=== PATIENT | male | born 1950 | race Caucasian/White ===

== ENCOUNTER 2018-02-19 06:50 | Day surgery (SDC) | payer MEDICARE, BC ==
[~2018-02-19 06:50] MED LIST: Lactated Ringers 1,000 ML IV SCH; Lidocaine 1%/Sod Bicarbonate in NS 8.4% 1 ML Syringe IDERM PRN; Sodium Chloride 0.9% 10 ML Syringe FLUSH PRN
[2018-02-19] MEDS ORDERED: Propofol 200 MG/20 ML SDV ONE ×2 (07:09→10:33)
[2018-02-19] MEDS ORDERED: Midazolam 1 MG/ML 2 ML SDV ONE (07:09)
--- NOTE | 2018-02-19 07:27 | PCM.PREANE ---
Preanesthetic Assessment - Anesthesia/Transfusion/Family Hx Anesthesia History: Prior Anesthesia Without Reaction Family History of Anesthesia Reaction: No Transfusion History: No Prior Transfusion(s) - Review of Systems General: Other (S/p cold, a little running nose, CKD 3 with Creatine 1.65, awaiting labs, ) Pulmonary: Other (TAY with CPAP, SOB) Cardiovascular: Other (CHF, amyloidosis, heart murmur, cardiomyopathy, low K+) Gastrointestinal: Other (GERD) Other: Reports: Diabetes, Depression - Physical Assessment NPO Status Date: 02/18/18 NPO Status Time: 21:00 Pulse: 52 O2 Sat by Pulse Oximetry: 95 Respiratory Rate: 16 Blood Pressure: 112/63 Temperature: 36.6 C Weight: 92.986 kg ASA Class: 3 Mental Status: Alert & Oriented x3 Airway Class: Mallampati = 2 Dentition: Reports: Normal Dentition Thyro-Mental Finger Breadths: 3 Mouth Opening Finger Breadths: 3 ROM/Head Extension: Full Lungs: Clear to Auscultation, Normal Respiratory Effort Cardiovascular: Regular Rate, Regular Rhythm, Murmurs - Allergies Allergies/Adverse Reactions: Allergies Allergy/AdvReac Type Severity Reaction Status Date / Time ioversol Allergy Rash Verified 02/16/18 11:24 levofloxacin Allergy Other Verified 02/07/16 13:43 Wspkcvg-Bre-Dpt Reductase Allergy Joint Pain Verified 02/16/18 11:24 Inhibitor - Blood Blood Available: No Product(s) Available: None - Anesthesia Plan Pre-Op Medication Ordered: None Beta Fox: Metoprolol Med Last Dose Date: 02/19/18 Med Last Dose Time: 06:00 - Acknowledgements Anesthesia Type Planned: MAC Pt an Appropriate Candidate for the Planned Anesthesia: Yes Alternatives and Risks of Anesthesia Discussed w Pt/Guardian: Yes Pt/Guardian Understands and Agrees with Anesthesia Plan: Yes PreAnesthesia Questionnaire HEENT History: Reports: Sinusitis Cardiovascular History: Reports: Cardiomyopathy, Heart Failure, Heart Murmur, Other (See Below) Other Cardiovascular History: amyloidosis Respiratory History: Reports: Bronchitis, Recurrent, Sleep Apnea Gastrointestinal History: Reports: GERD Genitourinary History: Reports: Chronic Renal Insuffiency Musculoskeletal History: Reports: Gout Neurological History: Reports: Other (See Below) Other Neuro History: narcolepsy Psychiatric History: Reports: Depression Endocrine/Metabolic History: Reports: Diabetes, Type II Hematologic History: Reports: Other (See Below) Other Hematologic History: amyloidosis, harvesting of peripheral blood stem cells Dermatologic History: Reports: Urticaria - Past Surgical History Cardiovascular Surgical History: Reports: Other (See Below) Other Cardiovascular Surgeries/Procedures: cardiac catheterization Respiratory Surgical History: Reports: Thoracentesis GI Surgical History: Reports: EGD Male Surgical History: Reports: Vasectomy - SUBSTANCE USE Smoking Status *Q: Never Smoker Recreational Drug Use History: No - HOME MEDS Home Medications: Home Meds Albuterol Sulfate 3 mg INH Q6H PRN 02/07/16 [History] Allopurinol [Zyloprim] 100 mg PO BID 02/07/16 [History] Colchicine [Colcrys] 0.6 mg PO BID PRN 02/07/16 [History] Glimepiride [Amaryl] 1 mg PO DAILY 02/07/16 [History] Hydrocortisone [Anusol-HC] 1 mg TOP BID 02/07/16 [History] Metolazone [Zaroxolyn] 2.5 mg PO Q7D 02/07/16 [History] Metoprolol Tartrate 50 mg PO BID 02/07/16 [History] Potassium Chloride 20 meq PO TID 02/07/16 [History] Torsemide 40 mg PO BID 02/07/16 [History] Cholecalciferol (Vitamin D3) [Vitamin D3] 1 cap PO ASDIRECTED 02/16/18 [History] Citalopram [Citalopram HBr] 20 mg PO DAILY 02/16/18 [History] Echinacea 1 cap PO DAILY 02/16/18 [History] guaiFENesin [Mucinex] 600 mg PO ASDIRECTED 02/16/18 [History] - CURRENT (IN HOUSE) MEDS Current Meds: Current Medications Lactated Ringer's (Ringers, Lactated) 1,000 mls @ 125 mls/hr IV ASDIRECTED CHAPO Stop: 02/19/18 23:00 Sodium Chloride (Normal Saline) 1,000 mls @ 125 mls/hr IV ASDIRECTED CHAPO Lidocaine/Sodium Bicarbonate (Buffered Lidocaine 1% In Ns 8.4%) 0.25 ml IDERM ONETIME PRN PRN Reason: Prior to IV Start Stop: 02/19/18 18:00 Sodium Chloride (Saline Flush) 10 ml FLUSH ASDIRECTED PRN PRN Reason: Keep Vein Open Stop: 02/19/18 18:00 Discontinued Medications Midazolam HCl (Versed 1 Mg/Ml) Confirm Administered Dose 2 mg .ROUTE .STK-MED ONE Stop: 02/19/18 07:10 Propofol (Diprivan 20 Ml) Confirm Administered Dose 200 mg .ROUTE .STK-MED ONE Stop: 02/19/18 07:10
[2018-02-19] MEDS ORDERED: Sodium Chloride 0.9% 1,000 ML IV SCH (07:30)
[2018-02-19] MEDS: Potassium Chloride 10 MEQ in Premix Bag 1 BAG IV SCH ×4 (08:00→11:26)
[2018-02-19] MEDS ORDERED: Lidocaine 1% 6 ML ONE (08:17)
[2018-02-19] MEDS ORDERED: Lidocaine 1% 4 ML ONE (10:16)
--- NOTE | 2018-02-19 10:49 | PCM.OPNOTE ---
- General Post-Op/Procedure Note Date of Surgery/Procedure: 02/19/18 Operative Procedure(s): colonoscopy to cecum Pre Op Diagnosis: screening colonoscopy Post-Op Diagnosis: Same Anesthesia Technique: MAC Primary Surgeon: Berhane oSto EBL in mLs: 0 Complications: None Condition: Good
--- NOTE | 2018-02-19 10:55 | PCM48HPAN ---
Post Anesthesia Note - EVALUATION WITHIN 48HRS OF ANESTHETIC Vital Signs in Normal Range: Yes Patient Participated in Evaluation: Yes Respiratory Function Stable: Yes Airway Patent: Yes Cardiovascular Function Stable: Yes Hydration Status Stable: Yes Pain Control Satisfactory: Yes Nausea and Vomiting Control Satisfactory: Yes Mental Status Recovered: Yes Pulse Rate: 57 SaO2: 90 Resp Rate: 16 Temperature: 36.5 C Blood Pressure: 101/64
[2018-02-19] MEDS ORDERED: Lidocaine 1% 2 ML ONE ×2 (11:23)
[2018-02-19 12:09] VITALS: BP 95/53
--- NOTE | 2018-02-20 07:12 | OR ---
DATE OF OPERATION: 02/19/2018 SURGEON: Berhane Soto MD PREOPERATIVE DIAGNOSIS: Screening colonoscopy. POSTOPERATIVE DIAGNOSIS: Screening colonoscopy. OPERATION PERFORMED: Colonoscopy to the cecum. FINDINGS: Occasional sigmoid diverticulosis. There was no angiodysplasias, neoplasias, large tumor masses, or ulcerations noted. ANESTHESIA: IV sedation. DESCRIPTION OF PROCEDURE: The patient was taken to the operating room, placed in a supine position connected to monitoring equipment, given IV sedation. He was placed in the left lateral position. Perianal area was inspected and was normal. Rectal exam showed good sphincter tone. A video Olympus colonoscope was then introduced into the rectum and threaded up without problem to the cecum, where the appendicular orifice and ileocecal valve was noted. Prep was excellent. [place] cleansing score grade A throughout the colon and the scope was slowly withdrawn showing the cecum, ascending colon, transverse colon, descending colon, sigmoid colon, and rectum. The above noted was found. The patient tolerated the procedure, sent to recovery room in a stable condition to be followed up as needed in the clinic. RECOMMENDATIONS: Repeat colonoscopy in 10 years. ESTIMATED BLOOD LOSS: MMODAL /[id number]
== END 2018-02-19 13:15 | disposition home or self-care (01) ==
LOC: JD.SDS 06:50
PROVIDERS: ATTEND Surgery
DX: Z12.11 Encounter for screening for malignant neoplasm of colon (principal); K57.30 Diverticulosis of large intestine without perforation or abscess without bleeding; F32.9 Major depressive disorder, single episode, unspecified; M10.9 Gout, unspecified; I25.2 Old myocardial infarction; G47.419 Narcolepsy without cataplexy; E11.22 Type 2 diabetes mellitus with diabetic chronic kidney disease; N18.4 Chronic kidney disease, stage 4 (severe); Z98.890 Other specified postprocedural states; Z79.84 Long term (current) use of oral hypoglycemic drugs; Z79.899 Other long term (current) drug therapy
CPT/HCPCS: 36415; 80048; 84132; G0121; J2001; J2250; J3480; J7040; 00811; J2704

== ENCOUNTER 2018-12-16 19:52 | Emergency (ER) | payer MEDICARE, BC ==
[2018-12-16 20:05] VITALS: BP 135/76
[2018-12-16] MEDS ORDERED: Lidocaine 1% 50 ML MDV ONE (20:24)
--- NOTE | 2018-12-16 20:54 | EDM.PDOC ---
ED HPI GENERAL MEDICAL PROBLEM - General Chief Complaint: Laceration Stated Complaint: RIGHT WRIST CUT WITH CLINICAL MARKETING MANAGER BLADE Time Seen by Provider: 12/16/18 20:03 Source of Information: Reports: Patient, RN Notes Reviewed History Limitations: Reports: No Limitations - History of Present Illness INITIAL COMMENTS - FREE TEXT/NARRATIVE: Patient is a 68 year old male who presents to the ED for the evaluation of a right wrist laceration. 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 This is around 2 cm in length and is linear. He is able to move all of his fingers and has sensation to all fingers. The bleeding is under control at time of initial evaluation. He states that he is Right handed and is not up to date with his tetanus booster. The laceration is located on his right medial wrist. - Related Data Allergies Allergy/AdvReac Type Severity Reaction Status Date / Time ioversol Allergy Rash Verified 12/16/18 20:02 levofloxacin Allergy Other Verified 12/16/18 20:02 Bzqidwp-Byh-Cqp Reductase AdvReac Joint Pain Verified 12/16/18 20:02 Inhibitor Home Meds: Home Meds Albuterol Sulfate 3 mg INH Q6H PRN 02/07/16 [History] Allopurinol [Zyloprim] 100 mg PO BID 02/07/16 [History] Colchicine [Colcrys] 0.6 mg PO BID PRN 02/07/16 [History] Glimepiride [Amaryl] 1 mg PO DAILY 02/07/16 [History] Hydrocortisone [Anusol-HC] 1 mg TOP BID 02/07/16 [History] Metolazone [Zaroxolyn] 2.5 mg PO Q7D 02/07/16 [History] Metoprolol Tartrate 50 mg PO BID 02/07/16 [History] Potassium Chloride 20 meq PO TID 02/07/16 [History] Torsemide 40 mg PO BID 02/07/16 [History] Cholecalciferol (Vitamin D3) [Vitamin D3] 1 cap PO ASDIRECTED 02/16/18 [History] Citalopram [Citalopram HBr] 20 mg PO DAILY 02/16/18 [History] Echinacea 1 cap PO DAILY 02/16/18 [History] guaiFENesin [Mucinex] 600 mg PO ASDIRECTED 02/16/18 [History] Past Medical History HEENT History: Reports: Impaired Vision, Sinusitis Other HEENT History: Wears glasses Cardiovascular History: Reports: Cardiomyopathy, Heart Failure, Heart Murmur, Other (See Below) Other Cardiovascular History: amyloidosis Respiratory History: Reports: Bronchitis, Recurrent, Sleep Apnea Gastrointestinal History: Reports: GERD Genitourinary History: Reports: Chronic Renal Insuffiency Musculoskeletal History: Reports: Gout Neurological History: Reports: Other (See Below) Other Neuro History: narcolepsy Psychiatric History: Reports: Depression Endocrine/Metabolic History: Reports: Diabetes, Type II Hematologic History: Reports: Other (See Below) Other Hematologic History: amyloidosis, harvesting of peripheral blood stem cells Dermatologic History: Reports: Urticaria - Past Surgical History Cardiovascular Surgical History: Reports: Other (See Below) Other Cardiovascular Surgeries/Procedures: cardiac catheterization Respiratory Surgical History: Reports: Thoracentesis GI Surgical History: Reports: Colonoscopy, EGD Male Surgical History: Reports: Vasectomy Social & Family History - Tobacco Use Smoking Status *Q: Never Smoker - Caffeine Use Caffeine Use: Reports: Coffee, Soda - Recreational Drug Use Recreational Drug Use: No ED ROS GENERAL - Review of Systems Review Of Systems: ROS reveals no pertinent complaints other than HPI. Constitutional: Reports: No Symptoms HEENT: Reports: No Symptoms Respiratory: Reports: No Symptoms Cardiovascular: Reports: No Symptoms Endocrine: Reports: No Symptoms GI/Abdominal: Reports: No Symptoms : Reports: No Symptoms Musculoskeletal: Reports: No Symptoms Skin: Reports: Wound (SEE HPI) Neurological: Reports: No Symptoms Psychiatric: Reports: No Symptoms Hematologic/Lymphatic: Reports: No Symptoms Immunologic: Reports: No Symptoms ED EXAM, SKIN/RASH Exam: See Below Text/Narrative:: exam limited to right upper extremity Exam Limited By: No Limitations General Appearance: Alert, WD/WN, No Apparent Distress Eye Exam: Bilateral Eye: Normal Inspection Head: Atraumatic, Normocephalic Neck: Normal Inspection Respiratory/Chest: No Respiratory Distress, Lungs Clear, Normal Breath Sounds, No Accessory Muscle Use, Chest Non-Tender Cardiovascular: Normal Peripheral Pulses, Regular Rate, Rhythm, No Murmur Extremities: Normal Inspection, Normal Range of Motion, Non-Tender, Normal Capillary Refill Neurological: Alert, Oriented, Normal Cognition, No Motor/Sensory Deficits Psychiatric: Normal Affect, Normal Mood Skin: Warm, Dry, Intact, Normal Color, No Rash ED SKIN PROCEDURES - Laceration/Wound Repair Right Medial Wrist Lac/Wound length In cm: 2 Appearance: Superficial, Subcutaneous, Linear, Clean Distal NVT: Neuro & Vascular Intact, No Tendon Injury Anesthetic Type: Local Local Anesthesia - Lidocaine (Xylocaine): 1% Plain Local Anesthetic Volume: 5cc Skin Prep: Chlorhexidine (Hibiciens), Isopropyl Alcohol (Alcohol) Saline Irrigation (cc's): 250 (copious) Exploration/Debridement/Repair: Wound Explored, In a Bloodless Field, Explored to Base, No Foreign Material Found Closed with: Sutures Suture Size: 4-0 # of Sutures: 5 Suture Type: Prolene, Interrupted, Simple Sterile Dressing Applied: Nurse Tetanus Status Addressed: Yes Complications: No Course - Vital Signs Last Recorded V/S: Last Vital Signs Temp 97.5 F 12/16/18 20:02 Pulse 60 12/16/18 20:02 Resp 18 12/16/18 20:02 BP 135/76 12/16/18 20:02 Pulse Ox 95 12/16/18 20:02 - Orders/Labs/Meds Meds: Medications Discontinued Medications Generic Name Dose Route Start Last Admin Trade Name Harlanq PRN Reason Stop Dose Admin Lidocaine HCl Confirm 12/16/18 20:24 Xylocaine 1% Administered 12/16/18 20:25 Dose 50 ml .ROUTE .STK-MED ONE Departure - Departure Time of Disposition: 20:51 Disposition: Home, Self-Care 01 Condition: Fair Clinical Impression: Laceration of wrist Qualifiers: Encounter type: initial encounter Laterality: right Qualified Code(s): S61.511A - Laceration without foreign body of right wrist, initial encounter - Discharge Information *PRESCRIPTION DRUG MONITORING PROGRAM REVIEWED*: No *COPY OF PRESCRIPTION DRUG MONITORING REPORT IN PATIENT ALEE: No Instructions: Stitches, [place], or Adhesive Wound Closure, [id number] Forms: ED Department Discharge Additional Instructions: You have been evaluated in the ED for your laceration. Sutures will need to stay in for 7 days (12-23-18) or 12-24-18 You may return to the ED or clinic for removal. Recommend no heavy lifting or strenuous activity for 2-3 days while the laceration is in early healing stages. Please keep this area clean and dry, you may cleanse with regular soap and water. No vigorous scrubbing. Please return to ED if your symptoms change or worsen.
[2018-12-16] MEDS ORDERED: Diphtheria,Pertussis(Acell),Tetanus Vaccine 0.5 ML Syringe ONE (20:57)
[2018-12-16] MEDS ORDERED: Lidocaine 1% 50 ML MDV INJECT STA (21:07)
== END 2018-12-16 21:04 | disposition home or self-care (01) ==
LOC: JD.ED 19:52
DX: S61.511A Laceration without foreign body of right wrist, initial encounter (principal); Z23 Encounter for immunization; E11.22 Type 2 diabetes mellitus with diabetic chronic kidney disease; N18.9 Chronic kidney disease, unspecified; I50.9 Heart failure, unspecified; K21.9 Gastro-esophageal reflux disease without esophagitis; Z88.8 Allergy status to other drugs, medicaments and biological substances; Z88.1 Allergy status to other antibiotic agents; W26.8XXA Contact with other sharp object(s), not elsewhere classified, initial encounter
CPT/HCPCS: 12001; 90471; 90700; 99282; J2001

== ENCOUNTER 2021-02-06 10:10 | Emergency (ER) | payer MEDICARE, BC ==
[2021-02-06] MEDS ORDERED: Sodium Chloride 0.9% 10 ML Syringe FLUSH PRN (10:32)
[2021-02-06] MEDS ORDERED: HYDROmorphone 1 MG/ML Syringe IVPUSH ONE (10:49)
[2021-02-06] MEDS ORDERED: Ondansetron 4 MG/2 ML SDV IVPUSH ONE (10:56)
--- NOTE | 2021-02-06 10:56 | EDM.PDOC ---
ED HPI GENERAL MEDICAL PROBLEM - General Chief Complaint: Lower Extremity Injury/Pain Stated Complaint: SORE RIGHT LEG Time Seen by Provider: 02/06/21 10:13 Source of Information: Reports: Patient History Limitations: Reports: No Limitations - History of Present Illness INITIAL COMMENTS - FREE TEXT/NARRATIVE: The patient presents with pain, swelling and ecchymosis to the right hamstring area. He said 2 weeks ago he was running some bases with his grandson and felt some pain. On Monday he had to lift a washer down some steps. He felt pain in his back and right posterior, upper leg. he could not get out of bed due to pain. He now has more swelling and ecchymosis. He is on coumadin due to atrial fibrillation. He also has a history of cardiomyopathy and a myloidosis. He has no chest pain or shortness of breath. He has no abdominal pain, nausea or vomiting. Onset: Gradual Duration: Day(s): Location: Reports: Lower Extremity, Right (posterior, upper leg) Quality: Reports: Sharp Severity: Severe Improves with: Reports: Immobilization Worsens with: Reports: Movement Context: Reports: Trauma (running and lifting) Associated Symptoms: Reports: No Other Symptoms Right Leg Pain Score (Numeric/FACES): 6 - Related Data Allergies Allergy/AdvReac Type Severity Reaction Status Date / Time nitroglycerin Allergy Severe Other Verified 02/06/21 10:22 ioversol Allergy Rash Verified 02/06/21 10:22 levofloxacin Allergy Other Verified 02/06/21 10:22 Lcqvftf-Nwu-Uhs Reductase AdvReac Joint Pain Verified 02/06/21 10:22 Inhibitor Home Meds: Home Meds Albuterol Sulfate 3 mg INH Q6H PRN 02/07/16 [History] Allopurinol [Zyloprim] 200 mg PO DAILY 02/07/16 [History] Colchicine [Colcrys] 0.6 mg PO DAILY PRN 02/07/16 [History] Glimepiride [Amaryl] 1 mg PO DAILY 02/07/16 [History] Potassium Chloride 40 meq PO BID 02/07/16 [History] Torsemide 40 mg PO BID 02/07/16 [History] Citalopram [Citalopram HBr] 20 mg PO DAILY 02/16/18 [History] Blood Sugar Diagnostic [Embrace] 1 each MC DAILY 02/06/21 [History] Eplerenone [Inspra] 25 mg PO DAILY 02/06/21 [History] Hydrocodone/Acetaminophen [Hydrocodone-Acetamin 5-325 mg] 1 - 2 each PO Q6HR PRN #20 tablet 02/06/21 [Rx] Warfarin Sodium [Jantoven] 5 mg PO DAILY 02/06/21 [History] Past Medical History HEENT History: Reports: Impaired Vision, Sinusitis Other HEENT History: Wears glasses Cardiovascular History: Reports: Afib, Cardiomyopathy, Heart Failure, Heart Murmur, SOB on Exertion, Other (See Below) Other Cardiovascular History: amyloidosis Respiratory History: Reports: Bronchitis, Recurrent, Sleep Apnea Gastrointestinal History: Reports: GERD Genitourinary History: Reports: Chronic Renal Insuffiency Musculoskeletal History: Reports: Arthritis, Back Pain, Chronic, Gout, Neck Pain, Chronic Neurological History: Reports: Other (See Below) Other Neuro History: narcolepsy Psychiatric History: Reports: Depression Endocrine/Metabolic History: Reports: Diabetes, Type II, Obesity/BMI 30+ Hematologic History: Reports: Other (See Below) Other Hematologic History: amyloidosis, harvesting of peripheral blood stem cells Dermatologic History: Reports: Urticaria - Infectious Disease History Infectious Disease History: Reports: Chicken Pox, Measles, Mumps, Shingles - Past Surgical History Cardiovascular Surgical History: Reports: Other (See Below) Other Cardiovascular Surgeries/Procedures: cardiac catheterization Respiratory Surgical History: Reports: Thoracentesis GI Surgical History: Reports: Colonoscopy, EGD Male Surgical History: Reports: Vasectomy Social & Family History - Tobacco Use Tobacco Use Status *Q: Never Tobacco User Second Hand Smoke Exposure: No - Caffeine Use Caffeine Use: Reports: Soda - Recreational Drug Use Recreational Drug Use: No Review of Systems - Review of Systems Review Of Systems: See Below Constitutional: Reports: No Symptoms Eyes: Reports: No Symptoms Ears: Reports: No Symptoms Nose: Reports: No Symptoms Mouth/Throat: Reports: No Symptoms Respiratory: Reports: No Symptoms Cardiovascular: Reports: No Symptoms GI/Abdominal: Reports: No Symptoms Genitourinary: Reports: No Symptoms Musculoskeletal: Reports: Other (Right posterior upper leg has edema and ecchymosis) ED EXAM, GENERAL - Physical Exam Exam: See Below Exam Limited By: No Limitations General Appearance: Alert, No Apparent Distress Ears: Normal External Exam Nose: Normal Inspection Head: Atraumatic, Normocephalic Neck: Normal Inspection Respiratory/Chest: No Respiratory Distress, Lungs Clear, Normal Breath Sounds Cardiovascular: Regular Rate, Rhythm, No Edema, No Murmur GI/Abdominal: Soft, Non-Tender, No Organomegaly, No Mass Extremities: Other (Right upper popsterior leg has moderate edema, ecchymosis and pain upon palpation. Good sensation and pulses distally.) Course - Vital Signs Last Recorded V/S: Last Vital Signs Temp 97.6 F 02/06/21 10:13 Pulse 76 02/06/21 12:30 Resp 12 02/06/21 12:30 BP 120/74 02/06/21 12:30 Pulse Ox 98 02/06/21 12:30 - Orders/Labs/Meds Orders: Active Orders 24 hr Category Date Time Status Cardiac Monitoring [RC] . DIRECTED Care 02/06/21 10:32 Active Peripheral IV Care [RC] . DIRECTED Care 02/06/21 10:33 Active Femur Min 2V Rt [CR] Stat Exams 02/06/21 10:33 Taken VL Duplex Lwr Ext Veins Ltd Rt [US] Stat Exams 02/06/21 10:34 Taken Sodium Chloride 0.9% [Saline Flush] Med 02/06/21 10:32 Active 10 ml FLUSH ASDIRECTED PRN Durable Medical Equipment for Discharge [DME for Oth 02/06/21 12:57 Ordered Discharge] [COMM] Stat Peripheral IV Insertion Adult [OM.PC] Stat Oth 02/06/21 10:32 Ordered Medication Orders Sodium Chloride (Sodium Chloride 0.9% 10 Ml Syringe) 10 ml FLUSH ASDIRECTED PRN PRN Reason: Keep Vein Open Last Admin: 02/06/21 10:43 Dose: 10 ml Documented by: CHIQUI Labs: Laboratory Tests 02/06/21 02/06/21 02/06/21 Range/Units 10:38 10:38 10:38 WBC 12.40 H (4.23-9.07) K/mm3 RBC 4.66 (4.63-6.08) M/mm3 Hgb 13.3 L D (13.7-17.5) gm/dl Hct 40.8 (40.1-51.0) % MCV 87.6 D (79.0-92.2) fl MCH 28.5 (25.7-32.2) pg MCHC 32.6 (32.2-35.5) g/dl RDW Std Deviation 48.6 H (35.1-43.9) fL Plt Count 234 (163-337) K/mm3 MPV 10.3 (9.4-12.3) fl Neut % (Auto) 80.3 H (34.0-67.9) % Lymph % (Auto) 9.5 L (21.8-53.1) % [place] % (Auto) 9.2 (5.3-12.2) % Eos % (Auto) 0.6 L (0.8-7.0) Baso % (Auto) 0.2 (0.1-1.2) % Neut # (Auto) 9.96 H (1.78-5.38) K/mm3 Lymph # (Auto) 1.18 L (1.32-3.57) K/mm3 [place] # (Auto) 1.14 H (0.30-0.82) K/mm3 Eos # (Auto) 0.08 (0.04-0.54) K/mm3 Baso # (Auto) 0.02 (0.01-0.08) K/mm3 Manual Slide Review Abnormal smear PT 32.9 H (9.7-12.0) SECONDS INR 3.14 Sodium 141 (136-145) mEq/L Potassium 3.9 (3.5-5.1) mEq/L Chloride 103 (98-107) mEq/L Carbon Dioxide 27 (21-32) mEq/L Anion Gap 14.9 (5-15) BUN 23 H (7-18) mg/dL Creatinine 1.6 H (0.7-1.3) mg/dL Est Cr Clr Drug Dosing 44.19 mL/min Estimated GFR (MDRD) 43 (>60) mL/min BUN/Creatinine Ratio 14.4 (14-18) Glucose 110 (80-115) mg/dL Calcium 8.5 (8.5-10.1) mg/dL Total Bilirubin 1.1 H (0.2-1.0) mg/dL AST 38 H (15-37) U/L ALT 29 (16-63) U/L Alkaline Phosphatase 74 (46-116) U/L Total Protein 7.5 (6.4-8.2) g/dl Albumin 3.6 (3.4-5.0) g/dl Globulin 3.9 gm/dL Albumin/Globulin Ratio 0.9 L (1-2) Meds: Medications Generic Name Dose Route Start Last Admin Trade Name Lorenzo PRN Reason Stop Dose Admin Sodium Chloride 10 ml 02/06/21 10:32 02/06/21 10:43 Sodium Chloride 0.9% 10 Ml Syringe FLUSH 10 ml ASDIRECTED PRN Administration Keep Vein Open Discontinued Medications Generic Name Dose Route Start Last Admin Trade Name Lorenzo PRN Reason Stop Dose Admin Hydromorphone HCl 1 mg 02/06/21 10:49 02/06/21 10:59 Hydromorphone 1 Mg/Ml Syringe IVPUSH 02/06/21 10:50 1 mg ONETIME ONE Administration Ondansetron HCl 4 mg 02/06/21 10:56 02/06/21 10:59 Ondansetron 4 Mg/2 Ml Sdv IVPUSH 02/06/21 10:57 4 mg ONETIME ONE Administration - Re-Assessments/Exams Free Text/Narrative Re-Assessment/Exam: 02/06/21 11:55 I ordered an IV saline lock, dilaudid 1mg IV, labs, UA of his leg and an x-ray. His x-ray looks good. His WBC was elevated at 12.4. His Hgb was low at 13.3. His platelets were normal. His INR was 3.14. His creatinine was slightly elevated at 1.6. His AST is elevated slightly at 38. I am waiting for the US report. 02/06/21 12:57 The US shows no evidence of DVT. I will put him in an CONNIE wrap and give him melissa ething for pain. I will have him follow up with Dr Sung. I will also refer him to PT. Departure - Departure Time of Disposition: 13:05 Disposition: Home, Self-Care 01 Condition: Good Clinical Impression: Right hamstring muscle strain Qualifiers: Encounter type: initial encounter Qualified Code(s): S76.311A - Strain of muscle, fascia and tendon of the posterior muscle group at thigh level, right thigh, initial encounter Hematoma of right thigh Qualifiers: Encounter type: initial encounter Qualified Code(s): S70.11XA - Contusion of right thigh, initial encounter - Discharge Information *PRESCRIPTION DRUG MONITORING PROGRAM REVIEWED*: Not Applicable *COPY OF PRESCRIPTION DRUG MONITORING REPORT IN PATIENT ALEE: Not Applicable Prescriptions: Hydrocodone/Acetaminophen [Hydrocodone-Acetamin 5-325 mg] 1 - 2 each PO Q6HR PRN #20 tablet PRN Reason: Pain Referrals: Jarred Larios MD [Primary Care Provider] - Juan F Sung MD [Physician] - 1 Week Forms: ED Department Discharge Additional Instructions: Take your medication as prescribed. CONNIE wrap your leg a few times per day. Elevate your leg above your heart as much as you can for the next 3 days. Take the hydrocodone as needed for pain. Use the crutches as needed for pain. Follow up with Dr Sung within a week. Follow up with physical therapy in [facility]. Please return if you are worse. Sepsis Event Note (ED) - Evaluation Sepsis Screening Result: No Definite Risk - Focused Exam Vital Signs: Vital Signs Temp Pulse Resp BP Pulse Ox 02/06/21 12:30 76 12 120/74 98 02/06/21 11:33 74 12 111/84 97 02/06/21 10:13 97.6 F 86 12 147/91 H 96 - My Orders Last 24 Hours: My Active Orders 02/06/21 10:32 Cardiac Monitoring [RC] . DIRECTED Sodium Chloride 0.9% [Saline Flush] 10 ml FLUSH ASDIRECTED PRN Peripheral IV Insertion Adult [OM.PC] Stat 02/06/21 10:33 Peripheral IV Care [RC] . DIRECTED Femur Min 2V Rt [CR] Stat 02/06/21 10:34 VL Duplex Lwr Ext Veins Ltd Rt [US] Stat 02/06/21 12:57 Durable Medical Equipment for Discharge [DME for Discharge] [COMM] Stat - Assessment/Plan Last 24 Hours: My Active Orders 02/06/21 10:32 Cardiac Monitoring [RC] . DIRECTED Sodium Chloride 0.9% [Saline Flush] 10 ml FLUSH ASDIRECTED PRN Peripheral IV Insertion Adult [OM.PC] Stat 02/06/21 10:33 Peripheral IV Care [RC] . DIRECTED Femur Min 2V Rt [CR] Stat 02/06/21 10:34 VL Duplex Lwr Ext Veins Ltd Rt [US] Stat 02/06/21 12:57 Durable Medical Equipment for Discharge [DME for Discharge] [COMM] Stat
[2021-02-06 12:43] VITALS: BP 120/74; PULSE 76
--- NOTE | 2021-02-07 09:28 | CR ---
Right femur: AP and lateral views of the right femur were obtained. Comparison: No previous study. Mild joint space narrowing is noted within the medial joint compartment of the knee. Mild joint space narrowing is noted within the superior right hip. No acute fracture, dislocation or other bony abnormality is appreciated. Impression: 1. Slight degenerative change as noted above. 2. No acute abnormality is appreciated on right femur study. Diagnostic code #2
--- NOTE | 2021-02-07 09:37 | US ---
Right lower extremity deep venous ultrasound: Duplex and color Doppler evaluation was obtained of the right common femoral, proximal greater saphenous, superficial femoral, popliteal, posterior tibial and peroneal veins. Left common femoral vein was also evaluated. Findings: Normal phasic flow, augmentation and compression is seen. Impression: 1. No findings of deep venous thrombosis within the right lower extremity or within the left common femoral vein. Diagnostic code #1 I agree with preliminary report from [facility], finalized on 02/06/21, 1:48 PM CDT, code #1
== END 2021-02-06 13:20 | disposition home or self-care (01) ==
LOC: JD.ED 10:10
DX: S76.311A Strain of muscle, fascia and tendon of the posterior muscle group at thigh level, right thigh, initial encounter (principal); I48.91 Unspecified atrial fibrillation; I50.9 Heart failure, unspecified; E11.22 Type 2 diabetes mellitus with diabetic chronic kidney disease; N18.9 Chronic kidney disease, unspecified; M06.9 Rheumatoid arthritis, unspecified; E66.9 Obesity, unspecified; Z68.32 Body mass index [BMI] 32.0-32.9, adult; Z88.8 Allergy status to other drugs, medicaments and biological substances; Z88.1 Allergy status to other antibiotic agents; Z79.84 Long term (current) use of oral hypoglycemic drugs; Z79.899 Other long term (current) drug therapy; X50.9XXA Other and unspecified overexertion or strenuous movements or postures, initial encounter
CPT/HCPCS: 36415; 73552; 80053; 85025; 85610; 93971; 96374; 96375; 99284; J1170; J2405

== ENCOUNTER 2021-03-04 17:31 | Emergency (ER) | payer MEDICARE, BC ==
[2021-03-04 17:59] VITALS: BP 119/75; PULSE 64
[2021-03-04] MEDS ORDERED: Ondansetron 4 MG/2 ML SDV IVPUSH ONE (20:40)
[2021-03-04] MEDS ORDERED: HYDROmorphone 0.5 MG/0.5 ML Syringe IVPUSH ONE (20:40)
[2021-03-04] MEDS ORDERED: Famotidine 20 MG/2 ML SDV IVPUSH ONE (20:40)
[2021-03-04] MEDS ORDERED: Sodium Chloride 0.9% 1,000 ML IV SCH (20:45)
--- NOTE | 2021-03-04 21:12 | EDM.PDOC ---
ED HPI GENERAL MEDICAL PROBLEM - General Chief Complaint: Back Pain or Injury Stated Complaint: BACK/HEAD PAIN POST SURGERY Time Seen by Provider: 03/04/21 20:21 Source of Information: Reports: Patient, RN Notes Reviewed - History of Present Illness INITIAL COMMENTS - FREE TEXT/NARRATIVE: 70 yr old male had spinal fusion c 5-7 2 1/2 wks ago. Has been having a lot of pain post lower neck, upper back since that surgery. States when he takes hydrocodone he gets relief of the pain but they "upset his stomach. Occasional sharp shooting pains down both forearms, radial aspect to middle, ring and small fingers. No focal weakness. No fever or chills. He is more comfortable lying down. Pain is more when he stands or walks. He is on coumadin in addition to other meds. hx chronc a fib. He see's his Neurosurgeon early next week. Generalized Pain Score (Numeric/FACES): 10 - Related Data Allergies Allergy/AdvReac Type Severity Reaction Status Date / Time ioversol Allergy Severe Rash Verified 03/04/21 17:59 levofloxacin Allergy Severe Other Verified 03/04/21 17:59 nitroglycerin Allergy Severe Other Verified 03/04/21 17:59 Khffsic-Lfi-Cxi Reductase AdvReac Severe Joint Pain Verified 03/04/21 17:59 Inhibitor Home Meds: Home Meds Albuterol Sulfate 3 mg INH Q6H PRN 02/07/16 [History] Glimepiride [Amaryl] 1 mg PO DAILY 02/07/16 [History] Potassium Chloride 40 meq PO BID 02/07/16 [History] Torsemide 40 mg PO BID 02/07/16 [History] Citalopram [Citalopram HBr] 20 mg PO DAILY 02/16/18 [History] Eplerenone [Inspra] 25 mg PO DAILY 02/06/21 [History] Hydrocodone/Acetaminophen [Hydrocodone-Acetamin 5-325 mg] 1 - 2 each PO Q6HR PRN #20 tablet 02/06/21 [Rx] Warfarin Sodium [Jantoven] 5 mg PO DAILY 02/06/21 [History] Acetaminophen 650 mg PO Q4H PRN 03/04/21 [History] Cyclobenzaprine [Flexeril] 10 mg PO DAILY 03/04/21 [History] Past Medical History HEENT History: Reports: Impaired Vision, Sinusitis Other HEENT History: Wears glasses Cardiovascular History: Reports: Afib, Cardiomyopathy, Heart Failure, Heart Murmur, SOB on Exertion, Other (See Below) Other Cardiovascular History: amyloidosis Respiratory History: Reports: Bronchitis, Recurrent, Sleep Apnea Gastrointestinal History: Reports: GERD Genitourinary History: Reports: Chronic Renal Insuffiency Musculoskeletal History: Reports: Arthritis, Back Pain, Chronic, Gout, Neck Pain, Chronic Neurological History: Reports: Other (See Below) Other Neuro History: narcolepsy Psychiatric History: Reports: Depression Endocrine/Metabolic History: Reports: Diabetes, Type II, Obesity/BMI 30+ Hematologic History: Reports: Anticoagulation Therapy, Other (See Below) Other Hematologic History: amyloidosis, harvesting of peripheral blood stem cells Dermatologic History: Reports: Urticaria - Infectious Disease History Infectious Disease History: Reports: Chicken Pox, Measles, Mumps, Shingles - Past Surgical History Cardiovascular Surgical History: Reports: Other (See Below) Other Cardiovascular Surgeries/Procedures: cardiac catheterization Respiratory Surgical History: Reports: Thoracentesis GI Surgical History: Reports: Colonoscopy, EGD Male Surgical History: Reports: Vasectomy Neurological Surgical History: Reports: C-Spine Social & Family History - Tobacco Use Tobacco Use Status *Q: Never Tobacco User - Caffeine Use Caffeine Use: Reports: None - Recreational Drug Use Recreational Drug Use: No ED ROS GENERAL - Review of Systems Review Of Systems: See Below Constitutional: Denies: Fever, Chills, Diaphoresis HEENT: Denies: Throat Pain Respiratory: Denies: Shortness of Breath Cardiovascular: Denies: Chest Pain GI/Abdominal: Reports: Abdominal Pain (mild burning discomfort upper abd that comes and goes), Nausea. Denies: Constipation, Diarrhea, Vomiting Musculoskeletal: Reports: Back Pain (upper mid back) Skin: Denies: Rash Neurological: Reports: Numbness (occasional mild ulnar aspect of hands). Denies: Headache, Weakness ED EXAM, GENERAL - Physical Exam Exam: See Below General Appearance: Alert, No Apparent Distress Throat/Mouth: Normal Inspection Head: Atraumatic Neck: Supple, Other (healing incission ant neck, appears to be healing well, mild swelling, no drainage, mild tenderness post lower neck, no visible or palpable swelling, no warmth or erythema) Respiratory/Chest: No Respiratory Distress, Lungs Clear, Normal Breath Sounds Cardiovascular: Regular Rate, Rhythm GI/Abdominal: Soft, Non-Tender. No: Guarding Extremities: Normal Inspection, Normal Range of Motion. No: Leg Pain, Redness Neurological: Alert, Oriented, No Motor/Sensory Deficits Skin Exam: Warm, Dry, Normal Color, No Rash Course - Vital Signs Last Recorded V/S: Last Vital Signs Temp 96.5 F L 03/04/21 17:55 Pulse 64 03/04/21 17:55 Resp 20 03/04/21 17:55 BP 119/75 03/04/21 17:55 Pulse Ox 93 L 03/04/21 17:55 - Orders/Labs/Meds Labs: Laboratory Tests 03/04/21 03/04/21 03/04/21 Range/Units 17:55 17:55 17:55 WBC 11.04 H (4.23-9.07) K/mm3 RBC 4.68 (4.63-6.08) M/mm3 Hgb 13.4 L (13.7-17.5) gm/dl Hct 41.0 (40.1-51.0) % MCV 87.6 (79.0-92.2) fl MCH 28.6 (25.7-32.2) pg MCHC 32.7 (32.2-35.5) g/dl RDW Std Deviation 48.5 H (35.1-43.9) fL Plt Count 287 (163-337) K/mm3 MPV 10.6 (9.4-12.3) fl Neut % (Auto) 84.6 H (34.0-67.9) % Lymph % (Auto) 7.5 L (21.8-53.1) % Harlan % (Auto) 5.6 (5.3-12.2) % Eos % (Auto) 1.6 (0.8-7.0) Baso % (Auto) 0.5 (0.1-1.2) % Neut # (Auto) 9.34 H (1.78-5.38) K/mm3 Lymph # (Auto) 0.83 L (1.32-3.57) K/mm3 Harlan # (Auto) 0.62 (0.30-0.82) K/mm3 Eos # (Auto) 0.18 (0.04-0.54) K/mm3 Baso # (Auto) 0.05 (0.01-0.08) K/mm3 Manual Slide Review Abnormal smear PT (9.7-12.0) SECONDS INR Sodium 140 (136-145) mEq/L Potassium 4.2 (3.5-5.1) mEq/L Chloride 103 (98-107) mEq/L Carbon Dioxide 24 (21-32) mEq/L Anion Gap 17.2 H (5-15) BUN 26 H (7-18) mg/dL Creatinine 1.5 H (0.7-1.3) mg/dL Est Cr Clr Drug Dosing 47.13 mL/min Estimated GFR (MDRD) 47 (>60) mL/min BUN/Creatinine Ratio 17.3 (14-18) Glucose 112 H (70-99) mg/dL Calcium 9.3 (8.5-10.1) mg/dL Total Bilirubin 0.8 (0.2-1.0) mg/dL AST 28 (15-37) U/L ALT 34 (16-63) U/L Alkaline Phosphatase 115 (46-116) U/L C-Reactive Protein 1.4 H* (<1.0) mg/dL Total Protein 8.4 H (6.4-8.2) g/dl Albumin 4.0 (3.4-5.0) g/dl Globulin 4.4 gm/dL Albumin/Globulin Ratio 0.9 L (1-2) 03/04/21 Range/Units 17:55 WBC (4.23-9.07) K/mm3 RBC (4.63-6.08) M/mm3 Hgb (13.7-17.5) gm/dl Hct (40.1-51.0) % MCV (79.0-92.2) fl MCH (25.7-32.2) pg MCHC (32.2-35.5) g/dl RDW Std Deviation (35.1-43.9) fL Plt Count (163-337) K/mm3 MPV (9.4-12.3) fl Neut % (Auto) (34.0-67.9) % Lymph % (Auto) (21.8-53.1) % Harlan % (Auto) (5.3-12.2) % Eos % (Auto) (0.8-7.0) Baso % (Auto) (0.1-1.2) % Neut # (Auto) (1.78-5.38) K/mm3 Lymph # (Auto) (1.32-3.57) K/mm3 Harlan # (Auto) (0.30-0.82) K/mm3 Eos # (Auto) (0.04-0.54) K/mm3 Baso # (Auto) (0.01-0.08) K/mm3 Manual Slide Review PT 45.0 H D (9.7-12.0) SECONDS INR 4.33 Sodium (136-145) mEq/L Potassium (3.5-5.1) mEq/L Chloride (98-107) mEq/L Carbon Dioxide (21-32) mEq/L Anion Gap (5-15) BUN (7-18) mg/dL Creatinine (0.7-1.3) mg/dL Est Cr Clr Drug Dosing mL/min Estimated GFR (MDRD) (>60) mL/min BUN/Creatinine Ratio (14-18) Glucose (70-99) mg/dL Calcium (8.5-10.1) mg/dL Total Bilirubin (0.2-1.0) mg/dL AST (15-37) U/L ALT (16-63) U/L Alkaline Phosphatase (46-116) U/L C-Reactive Protein (<1.0) mg/dL Total Protein (6.4-8.2) g/dl Albumin (3.4-5.0) g/dl Globulin gm/dL Albumin/Globulin Ratio (1-2) Meds: Medications Discontinued Medications Generic Name Dose Route Start Last Admin Trade Name Harlanq PRN Reason Stop Dose Admin Famotidine 20 mg 03/04/21 20:40 03/04/21 20:55 Famotidine 20 Mg/2 Ml Sdv IVPUSH 03/04/21 20:41 20 mg ONETIME ONE Administration Hydromorphone HCl 0.5 mg 03/04/21 20:40 03/04/21 20:55 Hydromorphone 0.5 Mg/0.5 Ml Syringe IVPUSH 03/04/21 20:41 0.5 mg ONETIME ONE Administration Sodium Chloride 1,000 mls @ 999 mls/hr 03/04/21 20:45 03/04/21 20:54 Normal Saline IV 999 mls/hr ONETIME [facility] Administration Ondansetron HCl 4 mg 03/04/21 20:40 03/04/21 20:55 Ondansetron 4 Mg/2 Ml Sdv IVPUSH 03/04/21 20:41 4 mg ONETIME ONE Administration - Re-Assessments/Exams Free Text/Narrative Re-Assessment/Exam: 03/05/21 01:55 WBC 11,000, cRP 1.4. anion gap very mildly elevated. INR 4.3. Departure - Departure Time of Disposition: 22:32 Disposition: Home, Self-Care 01 Condition: Fair Clinical Impression: Neck pain Back pain Qualifiers: Back pain location: thoracic back pain Chronicity: acute Back pain laterality: midline Qualified Code(s): M54.6 - Pain in thoracic spine - Discharge Information Instructions: Acute Back Pain, Adult Referrals: Jarred Larios MD [Primary Care Provider] - Forms: ED Department Discharge Additional Instructions: Take 500 mg tylenol along with 1/2 tablet hydrocodone 4 times daily for pain. As the pain gets better than go to 1/4 tablet hydrodone and than to just regular tylenol. See Dr Senior next Monday as planned. Drink plenty of water. Return to ED as needed. Sepsis Event Note (ED) - Evaluation Sepsis Screening Result: No Definite Risk - Focused Exam Vital Signs: Vital Signs Temp Pulse Resp BP Pulse Ox 03/04/21 17:55 96.5 F L 64 20 119/75 93 L
== END 2021-03-04 22:59 | disposition home or self-care (01) ==
LOC: JD.ED 17:31
DX: M54.6 Pain in thoracic spine (principal); M54.2 Cervicalgia; I48.91 Unspecified atrial fibrillation; I50.9 Heart failure, unspecified; E11.22 Type 2 diabetes mellitus with diabetic chronic kidney disease; N18.9 Chronic kidney disease, unspecified; E66.9 Obesity, unspecified; Z68.31 Body mass index [BMI] 31.0-31.9, adult; Z88.1 Allergy status to other antibiotic agents; Z88.8 Allergy status to other drugs, medicaments and biological substances; Z79.84 Long term (current) use of oral hypoglycemic drugs; Z79.01 Long term (current) use of anticoagulants; Z79.899 Other long term (current) drug therapy
CPT/HCPCS: 36415; 80053; 85025; 85610; 86140; 96374; 96375; 99283; J1170; J2405; J3490; J7030; 99284

== ENCOUNTER 2024-01-20 10:06 | Emergency (ER) | payer MEDICARE, OTHER ==
[2024-01-20 10:55] LABS: BASOPHILS ABSOLUTE AUTO 0.1 K/mm3 (0.0-0.2); EOSINOPHILS ABSOLUTE AUTO 0.2 K/mm3 (0.0-0.4); EOSINOPHILS PERCENT AUTO 2.6 % (0.0-6.0); HEMOGLOBIN 12.7 gm/dl (14.0-18.0); IMMATURE GRAN ABSOLUTE AUTO 0.02 K/mm3 (0.00-0.05); IMMATURE GRAN PERCENT AUTO 0.3 % (0.0-0.4); LYMPHOCYTES PERCENT AUTO 12.8 % (24.0-44.0); MEAN CORPUSCULAR HEMOGLOBIN 28.7 pg (28.0-32.0); MEAN CORPUSCULAR HGB CONC 32.6 g/dl (32.0-36.0); MEAN PLATELET VOLUME 10.3 fl (9.4-12.4); MONOCYTES ABSOLUTE AUTO 0.5 K/mm3 (0.0-0.8); MONOCYTES PERCENT AUTO 6.5 % (0.0-8.0); NEUTROPHILS ABSOLUTE AUTO 6.1 K/mm3 (1.8-7.7); NEUTROPHILS PERCENT AUTO 76.8 % (41.0-71.0); PLATELET COUNT,PLT 194 K/mm3 (150-400); RED BLOOD CELL COUNT 4.43 M/mm3 (4.52-5.90); WHITE BLOOD CELL COUNT,WBC 7.97 K/mm3 (3.9-11.3)
[2024-01-20 11:14] LABS: A/G RATIO 0.8 (1-2); ALBUMIN 3.5 g/dl (3.4-5.0); ANION GAP 15.1 (5-15); BILIRUBIN TOTAL 0.7 mg/dL (0.2-1.0); BUN/CREATININE RATIO 16.9 (14-18); CALCIUM 8.7 mg/dL (8.5-10.1); CREATININE 1.3 mg/dL (0.7-1.3); EST CRCL DRUG DOSING (CG) 52.12 mL/min; POTASSIUM,K 3.1 mEq/L (3.5-5.1); PROTEIN TOTAL,TP 8.1 g/dl (6.4-8.2)
[2024-01-20 11:18] LABS: INR 6.16; PROTHROMBIN TIME 57.6 SECONDS (9.7-12.0)
[2024-01-20] MEDS: Oxymetazoline 0.05% Nasal Spray 30 ML Bottle NAS ONE (13:51)
[2024-01-20 13:53] VITALS: BP 137/84; PULSE 59
== END 2024-01-20 13:35 | disposition home or self-care (01) ==
LOC: JD.ED 10:06
DX: R04.0 Epistaxis (principal); I50.9 Heart failure, unspecified; I48.91 Unspecified atrial fibrillation; K21.9 Gastro-esophageal reflux disease without esophagitis; N18.9 Chronic kidney disease, unspecified; E66.9 Obesity, unspecified; E11.22 Type 2 diabetes mellitus with diabetic chronic kidney disease; Z88.8 Allergy status to other drugs, medicaments and biological substances; Z88.1 Allergy status to other antibiotic agents; Z86.19 Personal history of other infectious and parasitic diseases; Z79.01 Long term (current) use of anticoagulants; Z79.899 Other long term (current) drug therapy; Z68.26 Body mass index [BMI] 26.0-26.9, adult
CPT/HCPCS: 36415; 80053; 85025; 85610; 86850; 86900; 86901; 99283; A9270-GY

== ENCOUNTER 2024-08-02 01:15 | Emergency (ER) | payer MEDICARE, OTHER ==
[2024-08-02 01:27] VITALS: BP 132/74; PULSE 70
[2024-08-02] MEDS: predniSONE 20 MG Tab PO ONE (01:57)
[2024-08-02] MEDS: diphenhydrAMINE 50 MG Cap PO ONE (01:57)
== END 2024-08-02 02:06 | disposition home or self-care (01) ==
LOC: JD.ED 01:15
DX: R21 Rash and other nonspecific skin eruption (principal); L53.9 Erythematous condition, unspecified; I48.91 Unspecified atrial fibrillation; I50.9 Heart failure, unspecified; E11.22 Type 2 diabetes mellitus with diabetic chronic kidney disease; N18.9 Chronic kidney disease, unspecified; E66.9 Obesity, unspecified; Z68.26 Body mass index [BMI] 26.0-26.9, adult; Z79.01 Long term (current) use of anticoagulants; Z79.899 Other long term (current) drug therapy; Z88.9 Allergy status to unspecified drugs, medicaments and biological substances; Z88.1 Allergy status to other antibiotic agents; Z88.8 Allergy status to other drugs, medicaments and biological substances; Z91.048 Other nonmedicinal substance allergy status
CPT/HCPCS: 99282; J7512; Q0163

== ENCOUNTER 2024-12-24 18:45 | Inpatient (IN) | payer MEDICARE, OTHER ==
[2024-12-24] MEDS: Sodium Chloride 0.9% 1,000 ML IV ONE (19:50)
[2024-12-24] MEDS: Sodium Chloride 0.9% 10 ML Syringe FLUSH PRN (19:52)
[2024-12-24 20:26] LABS: HEMATOCRIT 42.4 % (42.0-52.0); HEMOGLOBIN 14.2 gm/dl (14.0-18.0); MEAN CORPUSCULAR HEMOGLOBIN 29.7 pg (28.0-32.0); MEAN CORPUSCULAR HGB CONC 33.5 g/dl (32.0-36.0); MEAN CORPUSCULAR VOLUME 88.7 fl (83.0-99.0); MEAN PLATELET VOLUME 11.4 fl (9.4-12.4); PLATELET COUNT,PLT 110 K/mm3 (150-400); RED BLOOD CELL COUNT 4.78 M/mm3 (4.52-5.90); WHITE BLOOD CELL COUNT,WBC 7.94 K/mm3 (3.9-11.3)
[2024-12-24 20:41] LABS: BAND PERCENT MAN 2 % (0-10); BASOPHILS PERCENT MAN 0 (0.2-1.2); EOSINOPHILS PERCENT MAN 0 % (0.8-7.0); LYMPHOCYTES % ATYPICAL MANUAL 2 %; LYMPHOCYTES PERCENT MAN 11 % (20-40); MONOCYTES PERCENT MAN 8 % (2-10)
[2024-12-24 20:43] LABS: OVALOCYTES 1+ SLIGHT; PLATELET COUNT ESTIMATE DECREASED; POIKILOCYTOSIS 1+ SLIGHT
[2024-12-24 20:45] LABS: INR 1.84; PROTHROMBIN TIME 18.7 SECONDS (9.7-12.0)
[2024-12-24 20:54] LABS: LACTIC ACID 1.4 mmol/L (0.4-2.0)
[2024-12-24 21:01] LABS: A/G RATIO 0.8 (1-2); ALANINE AMINOTRANSFERASE,ALT 18 U/L (16-63); ALBUMIN 3.3 g/dl (3.4-5.0); ALKALINE PHOSPHATASE 126 U/L (46-116); ANION GAP 13.4 (5-15); ASPARTATE AMNIOTRANSFERASE,AST 39 U/L (15-37); BLOOD UREA NITROGEN,BUN 33 mg/dL (7-18); BUN/CREATININE RATIO 20.6 (14-18); C-REACTIVE PROTEIN 3.61 mg/dL (<0.30); CALCIUM 8.2 mg/dL (8.5-10.1); CARBON DIOXIDE,CO2 27 mEq/L (21-32); CHLORIDE,CL 95 mEq/L (98-107); CREATININE 1.6 mg/dL (0.7-1.3); ESTIMATED GFR 46 mL/min (>60); GLUCOSE RANDOM 85 mg/dL (70-99); PROTEIN TOTAL,TP 7.7 g/dl (6.4-8.2); SODIUM,NA 132 mEq/L (136-145); TROPONIN I HIGH SENSITIVITY 68 pg/mL (<=76)
[2024-12-24 21:07] LABS: POTASSIUM,K 3.4 mEq/L (3.5-5.1)
[2024-12-24] MEDS: Acetaminophen 325 MG Tab PO ONE (22:45)
[2024-12-25] MEDS ORDERED: 50% Dextrose in Water 50 ML Syringe IVPUSH PRN (07:31)
[2024-12-25] MEDS ORDERED: Albuterol/Ipratropium 3.0-0.5 MG/3 ML Neb Soln NEB PRN (08:42)
[2024-12-25] MEDS ORDERED: Acetaminophen 325 MG Tab PO PRN (08:42)
[2024-12-25] MEDS ORDERED: oxyCODONE 5 MG Tab PO PRN (08:42)
[2024-12-25] MEDS ORDERED: Ondansetron 4 MG/2 ML SDV IV PRN (08:42)
[2024-12-25] MEDS ORDERED: Albuterol 0.083% 2.5 MG/3 ML Neb Soln INH PRN (08:54)
[2024-12-25] MEDS ORDERED: Sennosides/Docusate Sodium 50-8.6 MG Tab PO PRN (09:00)
[2024-12-25] MEDS ORDERED: Dexamethasone 4 MG/ML 5 ML MDV IVPUSH SCH (09:00)
[2024-12-25 09:20] LABS: BASOPHILS PERCENT AUTO 0.3 % (0.0-1.0); EOSINOPHILS PERCENT AUTO 0.2 % (0.0-6.0); HEMATOCRIT 42.2 % (42.0-52.0); HEMOGLOBIN 13.8 gm/dl (14.0-18.0); IMMATURE GRAN ABSOLUTE AUTO 0.04 K/mm3 (0.00-0.05); IMMATURE GRAN PERCENT AUTO 0.5 % (0.0-0.4); LYMPHOCYTES ABSOLUTE AUTO 0.7 K/mm3 (1.0-4.8); LYMPHOCYTES PERCENT AUTO 7.9 % (24.0-44.0); MEAN CORPUSCULAR HEMOGLOBIN 29.6 pg (28.0-32.0); MEAN CORPUSCULAR HGB CONC 32.7 g/dl (32.0-36.0); MEAN CORPUSCULAR VOLUME 90.6 fl (83.0-99.0); MEAN PLATELET VOLUME 10.7 fl (9.4-12.4); MONOCYTES ABSOLUTE AUTO 0.7 K/mm3 (0.0-0.8); MONOCYTES PERCENT AUTO 7.4 % (0.0-8.0); NEUTROPHILS ABSOLUTE AUTO 7.3 K/mm3 (1.8-7.7); NEUTROPHILS PERCENT AUTO 83.7 % (41.0-71.0); PLATELET COUNT,PLT 121 K/mm3 (150-400); RED BLOOD CELL COUNT 4.66 M/mm3 (4.52-5.90); WHITE BLOOD CELL COUNT,WBC 8.74 K/mm3 (3.9-11.3)
[2024-12-25] MEDS: Citalopram 20 MG Tab PO SCH (09:26)
[2024-12-25] MEDS: Dexamethasone 10 MG/ML SDV IVPUSH SCH (09:27)
[2024-12-25] MEDS: Gabapentin 100 MG Cap PO SCH (09:27)
[2024-12-25] MEDS: Torsemide 20 MG Tab PO SCH (09:28)
[2024-12-25] MEDS: REMDESIVIR 200 MG in Sodium Chloride 0.9% 250 ML IV ONE (09:28)
[2024-12-25 09:45] LABS: INR 1.97
[2024-12-25 10:00] LABS: A/G RATIO 0.7 (1-2); ALBUMIN 3.1 g/dl (3.4-5.0); ANION GAP 8.3 (5-15); BILIRUBIN TOTAL 1.3 mg/dL (0.2-1.0); BUN/CREATININE RATIO 19.4 (14-18); CALCIUM 8.4 mg/dL (8.5-10.1); CREATININE 1.6 mg/dL (0.7-1.3); EST CRCL DRUG DOSING (CG) 41.73 mL/min; PHOSPHORUS 2.7 mg/dL (2.6-4.7); POTASSIUM,K 3.3 mEq/L (3.5-5.1); PROTEIN TOTAL,TP 7.3 g/dl (6.4-8.2)
[2024-12-25] MEDS: Potassium Chloride 20 MEQ Tab.ER PO ONE ×2 (11:22→12:22)
[2024-12-25] MEDS: Insulin Lispro 100 Unit/ML 3 ML KwikPen SUBCUT SCH (11:23)
[2024-12-25] MEDS: Warfarin 2.5 MG Tab PO SCH (17:29)
[2024-12-25] MEDS: Famotidine 20 MG/2 ML SDV IVPUSH SCH (20:00)
[2024-12-25] MEDS ORDERED: Melatonin 3 MG Tab PO PRN (21:00)
[2024-12-26 04:11] LABS: HEMATOCRIT 42.8 % (42.0-52.0); HEMOGLOBIN 13.9 gm/dl (14.0-18.0); IMMATURE GRAN ABSOLUTE AUTO 0.02 K/mm3 (0.00-0.05); IMMATURE GRAN PERCENT AUTO 0.3 % (0.0-0.4); LYMPHOCYTES ABSOLUTE AUTO 0.5 K/mm3 (1.0-4.8); LYMPHOCYTES PERCENT AUTO 7.5 % (24.0-44.0); MEAN CORPUSCULAR HEMOGLOBIN 29.4 pg (28.0-32.0); MEAN CORPUSCULAR HGB CONC 32.5 g/dl (32.0-36.0); MEAN CORPUSCULAR VOLUME 90.7 fl (83.0-99.0); MEAN PLATELET VOLUME 10.9 fl (9.4-12.4); MONOCYTES ABSOLUTE AUTO 0.3 K/mm3 (0.0-0.8); MONOCYTES PERCENT AUTO 4.3 % (0.0-8.0); NEUTROPHILS ABSOLUTE AUTO 5.4 K/mm3 (1.8-7.7); NEUTROPHILS PERCENT AUTO 87.9 % (41.0-71.0); PLATELET COUNT,PLT 118 K/mm3 (150-400); RED BLOOD CELL COUNT 4.72 M/mm3 (4.52-5.90)
[2024-12-26 04:30] LABS: INR 2.28; PROTHROMBIN TIME 22.9 SECONDS (9.7-12.0)
[2024-12-26 04:46] LABS: A/G RATIO 0.7 (1-2); ALBUMIN 3.1 g/dl (3.4-5.0); ANION GAP 11.3 (5-15); BILIRUBIN TOTAL 0.9 mg/dL (0.2-1.0); BUN/CREATININE RATIO 21.3 (14-18); C-REACTIVE PROTEIN 4.61 mg/dL (<0.30); CALCIUM 8.8 mg/dL (8.5-10.1); CREATININE 1.5 mg/dL (0.7-1.3); EST CRCL DRUG DOSING (CG) 44.51 mL/min; MAGNESIUM 2.4 mg/dL (1.8-2.4); PHOSPHORUS 3.6 mg/dL (2.6-4.7); POTASSIUM,K 4.3 mEq/L (3.5-5.1); PROTEIN TOTAL,TP 7.7 g/dl (6.4-8.2)
[2024-12-26] MEDS: Empagliflozin 10 MG Tab PO SCH (08:07)
[2024-12-26] MEDS: REMDESIVIR 100 MG in Sodium Chloride 0.9% 250 ML IV SCH (08:07)
[2024-12-26] MEDS: Warfarin 5 MG Tab PO SCH (17:10)
[2024-12-27 06:02] LABS: INR 2.28; PROTHROMBIN TIME 22.9 SECONDS (9.7-12.0)
[2024-12-27 10:36] VITALS: BP 124/81; PULSE 50
[2024-12-27] MEDS ORDERED: Warfarin 2.5 MG Tab PO SCH (18:00)
== END 2024-12-27 10:25 | disposition home or self-care (01) | DRG 177 ==
LOC: JD.ED 18:45 → JD.ICU 22:59
PROVIDERS: ADMIT Internal Medicine; ATTEND Student in an Organized Health Care Education/Training Program
PROC: XW033E5 Introduction of Remdesivir Anti-infective into Peripheral Vein, Percutaneous Approach, New Technology Group 5 (ICD-10-PCS; principal; 2024-12-25)
DX: U07.1 COVID-19 (principal); R09.02 Hypoxemia; J96.21 Acute and chronic respiratory failure with hypoxia; E85.4 Organ-limited amyloidosis; I42.9 Cardiomyopathy, unspecified; Z88.1 Allergy status to other antibiotic agents; I43 Cardiomyopathy in diseases classified elsewhere; Z79.2 Long term (current) use of antibiotics; I48.91 Unspecified atrial fibrillation; I50.9 Heart failure, unspecified; H54.7 Unspecified visual loss; K21.9 Gastro-esophageal reflux disease without esophagitis; N18.9 Chronic kidney disease, unspecified; G47.33 Obstructive sleep apnea (adult) (pediatric); I95.9 Hypotension, unspecified; M19.90 Unspecified osteoarthritis, unspecified site; G89.29 Other chronic pain; E86.0 Dehydration; M54.9 Dorsalgia, unspecified; E11.22 Type 2 diabetes mellitus with diabetic chronic kidney disease; R00.1 Bradycardia, unspecified; M10.9 Gout, unspecified; F32.A Depression, unspecified; E66.9 Obesity, unspecified; Z68.29 Body mass index [BMI] 29.0-29.9, adult; Z98.890 Other specified postprocedural states; Z88.8 Allergy status to other drugs, medicaments and biological substances; Z79.01 Long term (current) use of anticoagulants; Z79.899 Other long term (current) drug therapy; Z95.0 Presence of cardiac pacemaker; J99 Respiratory disorders in diseases classified elsewhere; Z98.52 Vasectomy status
CPT/HCPCS: 36415; 71046; 80053; 83605; 83880; 84484; 85007; 85027; 85610; 86140; 87040 ×2; 93005; 94762; 96360; 99285; A9270; J7030; 82947; 83735; 84100; 85025; 93010; 94760; 94761; 97110-GP; 97116-GP; 97162-GP; 97530-GP; J0248; J1100; J1815

== ENCOUNTER 2025-03-15 20:49 | Emergency (ER) | payer MEDICARE ==
[2025-03-15] MEDS ORDERED: Sodium Chloride 0.9% 10 ML Syringe FLUSH PRN (21:37)
[2025-03-15 21:42] LABS: BASOPHILS ABSOLUTE AUTO 0.1 K/mm3 (0.0-0.2); BASOPHILS PERCENT AUTO 0.9 % (0.0-1.0); EOSINOPHILS ABSOLUTE AUTO 0.3 K/mm3 (0.0-0.4); EOSINOPHILS PERCENT AUTO 3.4 % (0.0-6.0); HEMATOCRIT 42.3 % (42.0-52.0); HEMOGLOBIN 13.8 gm/dl (14.0-18.0); IMMATURE GRAN ABSOLUTE AUTO 0.02 K/mm3 (0.00-0.05); IMMATURE GRAN PERCENT AUTO 0.3 % (0.0-0.4); LYMPHOCYTES ABSOLUTE AUTO 1.1 K/mm3 (1.0-4.8); LYMPHOCYTES PERCENT AUTO 14.7 % (24.0-44.0); MEAN CORPUSCULAR HEMOGLOBIN 29.2 pg (28.0-32.0); MEAN CORPUSCULAR HGB CONC 32.6 g/dl (32.0-36.0); MEAN CORPUSCULAR VOLUME 89.6 fl (83.0-99.0); MONOCYTES ABSOLUTE AUTO 0.8 K/mm3 (0.0-0.8); NEUTROPHILS ABSOLUTE AUTO 5.4 K/mm3 (1.8-7.7); NEUTROPHILS PERCENT AUTO 70.7 % (41.0-71.0); PLATELET COUNT,PLT 160 K/mm3 (150-400); RED BLOOD CELL COUNT 4.72 M/mm3 (4.52-5.90); WHITE BLOOD CELL COUNT,WBC 7.69 K/mm3 (3.9-11.3)
[2025-03-15] MEDS: Meclizine 25 MG Tab PO ONE (21:54)
[2025-03-15 21:56] LABS: PROTHROMBIN TIME 29.6 SECONDS (9.7-12.0)
[2025-03-15 22:01] LABS: A/G RATIO 0.9 (1-2); ALBUMIN 3.6 g/dl (3.4-5.0); ANION GAP 10.2 (5-15); BILIRUBIN TOTAL 0.9 mg/dL (0.2-1.0); BUN/CREATININE RATIO 17.9 (14-18); CALCIUM 8.8 mg/dL (8.5-10.1); CREATININE 1.9 mg/dL (0.7-1.3); EST CRCL DRUG DOSING (CG) 35.14 mL/min; MAGNESIUM 2.3 mg/dL (1.8-2.4); POTASSIUM,K 3.2 mEq/L (3.5-5.1); PROTEIN TOTAL,TP 7.6 g/dl (6.4-8.2)
[2025-03-15] MEDS: Potassium Chloride 20 MEQ Tab.ER PO ONE (23:34)
[2025-03-16 03:36] VITALS: BP 115/73; PULSE 55
== END 2025-03-16 03:25 | disposition home or self-care (01) ==
LOC: JD.ED 20:49
DX: R42 Dizziness and giddiness (principal); I48.91 Unspecified atrial fibrillation; E11.22 Type 2 diabetes mellitus with diabetic chronic kidney disease; N18.9 Chronic kidney disease, unspecified; Z86.79 Personal history of other diseases of the circulatory system; Z88.8 Allergy status to other drugs, medicaments and biological substances; Z91.048 Other nonmedicinal substance allergy status; Z79.51 Long term (current) use of inhaled steroids; Z79.01 Long term (current) use of anticoagulants; Z79.899 Other long term (current) drug therapy
CPT/HCPCS: 36415; 71045; 71045-26; 80053; 82947; 83690; 83735; 83880; 84484; 85025; 85610; 93005; 99285; A9270-GY

== ENCOUNTER 2025-05-26 08:59 | Emergency (ER) | payer MEDICARE ==
[2025-05-26] MEDS ORDERED: Sodium Chloride 0.9% 10 ML Syringe FLUSH PRN (09:40)
[2025-05-26 09:49] LABS: BASOPHILS ABSOLUTE AUTO 0.0 K/mm3 (0.0-0.2); BASOPHILS PERCENT AUTO 0.3 % (0.0-1.0); EOSINOPHILS ABSOLUTE AUTO 0.1 K/mm3 (0.0-0.4); EOSINOPHILS PERCENT AUTO 1.1 % (0.0-6.0); IMMATURE GRAN ABSOLUTE AUTO 0.05 K/mm3 (0.00-0.05); IMMATURE GRAN PERCENT AUTO 0.5 % (0.0-0.4); LYMPHOCYTES ABSOLUTE AUTO 0.6 K/mm3 (1.0-4.8); LYMPHOCYTES PERCENT AUTO 5.6 % (24.0-44.0); MEAN PLATELET VOLUME 11.1 fl (9.4-12.4); MONOCYTES ABSOLUTE AUTO 0.7 K/mm3 (0.0-0.8); MONOCYTES PERCENT AUTO 7.0 % (0.0-8.0); NEUTROPHILS ABSOLUTE AUTO 9.1 K/mm3 (1.8-7.7); NEUTROPHILS PERCENT AUTO 85.5 % (41.0-71.0); NRBC ABSOLUTE 0.00 (0.00-0.02); NRBC PERCENT 0.0 % (0.0-0.2); PLATELET COUNT,PLT 153 K/mm3 (150-400); RED BLOOD CELL COUNT 4.16 M/mm3 (4.52-5.90); WHITE BLOOD CELL COUNT,WBC 10.62 K/mm3 (3.9-11.3)
[2025-05-26 10:08] LABS: INR 2.15
[2025-05-26 10:20] LABS: A/G RATIO 0.8 (1-2); ALANINE AMINOTRANSFERASE,ALT 33.0 U/L (16-63); ASPARTATE AMNIOTRANSFERASE,AST 37.0 U/L (15-37); BILIRUBIN TOTAL 1.9 mg/dL (0.2-1.0); BLOOD UREA NITROGEN,BUN 34.0 mg/dL (7-18); CARBON DIOXIDE,CO2 33.0 mEq/L (21-32); CHLORIDE,CL 98.0 mEq/L (98-107); CREATININE 1.6 mg/dL (0.7-1.3); EST CRCL DRUG DOSING (CG) 41.73 mL/min; ESTIMATED GFR 46.0 mL/min (>60); GLUCOSE RANDOM 188.0 mg/dL (70-99); POTASSIUM,K 3.3 mEq/L (3.5-5.1); PROTEIN TOTAL,TP 7.4 g/dl (6.4-8.2); SODIUM,NA 138.0 mEq/L (136-145); TROPONIN I HIGH SENSITIVITY 39.0 pg/mL (<=76)
[2025-05-26 10:48] LABS: APPEARANCE,URINE CLEAR (Clear); GLUCOSE,URINE 2+ (Negative); OCCULT BLOOD,URINE TRACE-INTACT (Negative)
[2025-05-26 10:54] LABS: SQUAMOUS EPITHELIAL CELLS,UR 0-5 /hpf (0-5)
[2025-05-26] MEDS: diphenhydrAMINE 50 MG/ML SDV IVPUSH ONE (11:32)
[2025-05-26] MEDS: methylPREDNISolone Sodium Succinate 125 MG/2 ML SDV IVPUSH ONE (11:35)
[2025-05-26] MEDS: Iopamidol 755 Mg/ML 100 ML Bottle IVPUSH ONE (12:02)
[2025-05-26] MEDS: Sodium Chloride 0.9% 10 ML Syringe FLUSH PRN (12:02)
[2025-05-26] MEDS: Bumetanide 1 MG/4 ML MDV IVPUSH ONE (13:39)
[2025-05-26 14:57] VITALS: BP 107/67; PULSE 62
== END 2025-05-26 14:55 ==
LOC: JD.ED 08:59
DX: I50.9 Heart failure, unspecified (principal); E11.65 Type 2 diabetes mellitus with hyperglycemia; I48.91 Unspecified atrial fibrillation; N18.9 Chronic kidney disease, unspecified; K21.9 Gastro-esophageal reflux disease without esophagitis; E11.22 Type 2 diabetes mellitus with diabetic chronic kidney disease; Z86.16 Personal history of COVID-19; Z95.0 Presence of cardiac pacemaker; Z91.041 Radiographic dye allergy status; Z88.1 Allergy status to other antibiotic agents; Z91.018 Allergy to other foods; Z88.8 Allergy status to other drugs, medicaments and biological substances; Z79.51 Long term (current) use of inhaled steroids; Z79.899 Other long term (current) drug therapy; Z79.01 Long term (current) use of anticoagulants
CPT/HCPCS: 36415; 71045; 71275; 80053; 81001; 83690; 83735; 83880; 84484; 85025; 85379; 85610; 93005; 96361; 96374; 96375; 99285; A9270; J1200; J2919; J3490; J7030; Q9967; 93010

== ENCOUNTER 2025-06-22 19:26 | Emergency (ER) | payer MEDICARE ==
[2025-06-22 20:01] VITALS: PULSE 61
[2025-06-22 20:02] LABS: BASOPHILS ABSOLUTE AUTO 0.1 K/mm3 (0.0-0.2); BASOPHILS PERCENT AUTO 0.6 % (0.0-1.0); EOSINOPHILS ABSOLUTE AUTO 0.2 K/mm3 (0.0-0.4); EOSINOPHILS PERCENT AUTO 1.9 % (0.0-6.0); IMMATURE GRAN ABSOLUTE AUTO 0.05 K/mm3 (0.00-0.05); IMMATURE GRAN PERCENT AUTO 0.5 % (0.0-0.4); LYMPHOCYTES ABSOLUTE AUTO 0.9 K/mm3 (1.0-4.8); LYMPHOCYTES PERCENT AUTO 10.0 % (24.0-44.0); MEAN PLATELET VOLUME 10.0 fl (9.4-12.4); MONOCYTES ABSOLUTE AUTO 1.2 K/mm3 (0.0-0.8); MONOCYTES PERCENT AUTO 13.0 % (0.0-8.0); NEUTROPHILS ABSOLUTE AUTO 7.0 K/mm3 (1.8-7.7); NEUTROPHILS PERCENT AUTO 74.0 % (41.0-71.0); NRBC ABSOLUTE 0.00 (0.00-0.02); NRBC PERCENT 0.0 % (0.0-0.2); PLATELET COUNT,PLT 182 K/mm3 (150-400); RED BLOOD CELL COUNT 4.24 M/mm3 (4.52-5.90); WHITE BLOOD CELL COUNT,WBC 9.42 K/mm3 (3.9-11.3)
[2025-06-22 20:19] LABS: INR 3.56
[2025-06-22 20:21] LABS: PTT,PARTIAL THROMBOPLSTIN TIME 42.1 SECONDS (21.7-31.4)
[2025-06-22 20:32] LABS: A/G RATIO 0.9 (1-2); ALANINE AMINOTRANSFERASE,ALT 38.0 U/L (16-63); ASPARTATE AMNIOTRANSFERASE,AST 36.0 U/L (15-37); BILIRUBIN TOTAL 0.9 mg/dL (0.2-1.0); BLOOD UREA NITROGEN,BUN 29.0 mg/dL (7-18); CARBON DIOXIDE,CO2 34.0 mEq/L (21-32); CHLORIDE,CL 93.0 mEq/L (98-107); CREATININE 1.6 mg/dL (0.7-1.3); EST CRCL DRUG DOSING (CG) 41.73 mL/min; ESTIMATED GFR 46.0 mL/min (>60); GLUCOSE RANDOM 97.0 mg/dL (70-99); POTASSIUM,K 3.0 mEq/L (3.5-5.1); PROTEIN TOTAL,TP 7.3 g/dl (6.4-8.2); SODIUM,NA 133.0 mEq/L (136-145); TROPONIN I HIGH SENSITIVITY 36.0 pg/mL (<=76)
[2025-06-22] MEDS: Potassium Chloride 20 MEQ Tab.ER PO ONE ×2 (21:55→21:56)
[2025-06-22 22:55] VITALS: BP 100/59
== END 2025-06-22 22:50 | disposition home or self-care (01) ==
LOC: JD.ED 19:26
DX: I95.9 Hypotension, unspecified (principal); E11.9 Type 2 diabetes mellitus without complications; E66.9 Obesity, unspecified; I50.9 Heart failure, unspecified; Z88.8 Allergy status to other drugs, medicaments and biological substances; Z79.899 Other long term (current) drug therapy; Z99.81 Dependence on supplemental oxygen
CPT/HCPCS: 36415; 71045; 80053; 83735; 83880; 84484; 85025; 85610; 85730; 87426; 93005; 99285; A9270; 93010; 99283

== ENCOUNTER 2025-07-12 20:56 | Emergency (ER) | payer MEDICARE ==
[2025-07-12] MEDS ORDERED: Sodium Chloride 0.9% 10 ML Syringe FLUSH PRN (21:18)
[2025-07-12 21:40] LABS: BASOPHILS ABSOLUTE AUTO 0.1 K/mm3 (0.0-0.2); BASOPHILS PERCENT AUTO 1.2 % (0.0-1.0); EOSINOPHILS ABSOLUTE AUTO 0.0 K/mm3 (0.0-0.4); EOSINOPHILS PERCENT AUTO 0.0 % (0.0-6.0); IMMATURE GRAN ABSOLUTE AUTO 0.04 K/mm3 (0.00-0.05); IMMATURE GRAN PERCENT AUTO 0.5 % (0.0-0.4); LYMPHOCYTES ABSOLUTE AUTO 1.1 K/mm3 (1.0-4.8); LYMPHOCYTES PERCENT AUTO 13.0 % (24.0-44.0); MEAN PLATELET VOLUME 9.8 fl (9.4-12.4); MONOCYTES ABSOLUTE AUTO 1.0 K/mm3 (0.0-0.8); MONOCYTES PERCENT AUTO 11.3 % (0.0-8.0); NEUTROPHILS ABSOLUTE AUTO 6.3 K/mm3 (1.8-7.7); NEUTROPHILS PERCENT AUTO 74.0 % (41.0-71.0); NRBC ABSOLUTE 0.00 (0.00-0.02); NRBC PERCENT 0.0 % (0.0-0.2); PLATELET COUNT,PLT 181 K/mm3 (150-400); RED BLOOD CELL COUNT 4.54 M/mm3 (4.52-5.90); WHITE BLOOD CELL COUNT,WBC 8.55 K/mm3 (3.9-11.3)
[2025-07-12 22:08] LABS: A/G RATIO 0.9 (1-2); ALANINE AMINOTRANSFERASE,ALT 33.0 U/L (16-63); ASPARTATE AMNIOTRANSFERASE,AST 28.0 U/L (15-37); BILIRUBIN TOTAL 0.6 mg/dL (0.2-1.0); BLOOD UREA NITROGEN,BUN 46.0 mg/dL (7-18); CARBON DIOXIDE,CO2 33.0 mEq/L (21-32); CHLORIDE,CL 92.0 mEq/L (98-107); CREATININE 1.7 mg/dL (0.7-1.3); EST CRCL DRUG DOSING (CG) 39.28 mL/min; ESTIMATED GFR 42.0 mL/min (>60); GLUCOSE RANDOM 135.0 mg/dL (70-99); POTASSIUM,K 2.9 mEq/L (3.5-5.1); PROTEIN TOTAL,TP 7.8 g/dl (6.4-8.2); SODIUM,NA 133.0 mEq/L (136-145); TROPONIN I HIGH SENSITIVITY 46.0 pg/mL (<=76)
[2025-07-12] MEDS: Furosemide 40 MG/4 ML VIAL IVPUSH ONE (22:46)
[2025-07-12] MEDS: Potassium Bicarbonate/Cit Ac 20 MEQ Effervescent Tab PO ONE (22:47)
[2025-07-13 01:01] LABS: INR 2.84
[2025-07-13 01:14] VITALS: BP 119/70; PULSE 50
== END 2025-07-13 01:14 | disposition home or self-care (01) ==
LOC: JD.ED 20:56
DX: I13.0 Hypertensive heart and chronic kidney disease with heart failure and stage 1 through stage 4 chronic kidney disease, or unspecified chronic kidney disease (principal); I50.9 Heart failure, unspecified; E87.6 Hypokalemia; I48.91 Unspecified atrial fibrillation; E11.9 Type 2 diabetes mellitus without complications; E11.22 Type 2 diabetes mellitus with diabetic chronic kidney disease; E66.9 Obesity, unspecified; M19.90 Unspecified osteoarthritis, unspecified site; N18.9 Chronic kidney disease, unspecified; Z95.0 Presence of cardiac pacemaker; Z79.899 Other long term (current) drug therapy; Z79.51 Long term (current) use of inhaled steroids; Z88.8 Allergy status to other drugs, medicaments and biological substances; Z79.01 Long term (current) use of anticoagulants; Z86.16 Personal history of COVID-19; Z68.30 Body mass index [BMI] 30.0-30.9, adult
CPT/HCPCS: 36415; 71045; 80053; 83735; 83880; 84484; 85025; 85610; 93005; 96374; 99285; A9270; J1938

== ENCOUNTER 2025-08-16 00:15 | Emergency (ER) | payer MEDICARE ==
[2025-08-16] MEDS ORDERED: Sodium Chloride 0.9% 10 ML Syringe FLUSH PRN (00:54)
[2025-08-16 01:14] LABS: BASOPHILS ABSOLUTE AUTO 0.1 K/mm3 (0.0-0.2); BASOPHILS PERCENT AUTO 0.9 % (0.0-1.0); EOSINOPHILS ABSOLUTE AUTO 0.5 K/mm3 (0.0-0.4); EOSINOPHILS PERCENT AUTO 5.6 % (0.0-6.0); IMMATURE GRAN ABSOLUTE AUTO 0.04 K/mm3 (0.00-0.05); IMMATURE GRAN PERCENT AUTO 0.4 % (0.0-0.4); LYMPHOCYTES ABSOLUTE AUTO 1.2 K/mm3 (1.0-4.8); LYMPHOCYTES PERCENT AUTO 13.5 % (24.0-44.0); MEAN PLATELET VOLUME 10.3 fl (9.4-12.4); MONOCYTES ABSOLUTE AUTO 1.2 K/mm3 (0.0-0.8); MONOCYTES PERCENT AUTO 13.4 % (0.0-8.0); NEUTROPHILS ABSOLUTE AUTO 5.9 K/mm3 (1.8-7.7); NEUTROPHILS PERCENT AUTO 66.2 % (41.0-71.0); NRBC ABSOLUTE 0.00 (0.00-0.02); NRBC PERCENT 0.0 % (0.0-0.2); PLATELET COUNT,PLT 188 K/mm3 (150-400); RED BLOOD CELL COUNT 4.61 M/mm3 (4.52-5.90); WHITE BLOOD CELL COUNT,WBC 8.90 K/mm3 (3.9-11.3)
[2025-08-16 02:00] LABS: A/G RATIO 0.9 (1-2); ALANINE AMINOTRANSFERASE,ALT 25.0 U/L (16-63); ASPARTATE AMNIOTRANSFERASE,AST 30.0 U/L (15-37); BILIRUBIN TOTAL 0.7 mg/dL (0.2-1.0); BLOOD UREA NITROGEN,BUN 44.0 mg/dL (7-18); CARBON DIOXIDE,CO2 37.0 mEq/L (21-32); CHLORIDE,CL 94.0 mEq/L (98-107); CREATININE 2.0 mg/dL (0.7-1.3); EST CRCL DRUG DOSING (CG) 33.39 mL/min; ESTIMATED GFR 35.0 mL/min (>60); GLUCOSE RANDOM 108.0 mg/dL (70-99); POTASSIUM,K 2.7 mEq/L (3.5-5.1); PROTEIN TOTAL,TP 7.5 g/dl (6.4-8.2); SODIUM,NA 137.0 mEq/L (136-145); TROPONIN I HIGH SENSITIVITY 47.0 pg/mL (<=76)
[2025-08-16 02:01] LABS: ETHANOL BLOOD MEDICAL 0.0 gm% (0.00)
[2025-08-16] MEDS: Potassium Bicarbonate/Cit Ac 20 MEQ Effervescent Tab PO ONE (02:17)
[2025-08-16 03:15] LABS: INR 2.94
[2025-08-16 03:35] VITALS: BP 109/65; PULSE 62
== END 2025-08-16 03:11 | disposition home or self-care (01) ==
LOC: JD.ED 00:15
DX: S00.03XA Contusion of scalp, initial encounter (principal); S09.93XA Unspecified injury of face, initial encounter; J96.10 Chronic respiratory failure, unspecified whether with hypoxia or hypercapnia; E87.6 Hypokalemia; H72.92 Unspecified perforation of tympanic membrane, left ear; E83.42 Hypomagnesemia; R79.89 Other specified abnormal findings of blood chemistry; I48.91 Unspecified atrial fibrillation; I50.9 Heart failure, unspecified; N18.9 Chronic kidney disease, unspecified; H91.92 Unspecified hearing loss, left ear; E11.22 Type 2 diabetes mellitus with diabetic chronic kidney disease; E66.9 Obesity, unspecified; K21.9 Gastro-esophageal reflux disease without esophagitis; Z86.16 Personal history of COVID-19; Z79.899 Other long term (current) drug therapy; Z79.84 Long term (current) use of oral hypoglycemic drugs; Z79.01 Long term (current) use of anticoagulants; Z88.8 Allergy status to other drugs, medicaments and biological substances; Z88.1 Allergy status to other antibiotic agents; Z91.048 Other nonmedicinal substance allergy status; W18.30XA Fall on same level, unspecified, initial encounter
CPT/HCPCS: 36415; 70450; 71045; 80053; 80307; 83735; 83880; 84484; 85025; 85610; 93005; 99284; A9270; 93010